=== PATIENT | male | born 1990 | race Caucasian/White ===

== ENCOUNTER 2023-12-22 11:03 | Day surgery (SDC) | payer MEDICARE, MEDICAID, SELFPAY ==
[2023-12-22] VITALS (10 sets, daily range): BP systolic 133–157; BP diastolic 8–116; PULSE 90–97; RESP 16–28; TEMP 98.4; O2SAT 90–96
[~2023-12-22] VITALS: Ht 167.6 cm; Wt 117.3 kg
[~2023-12-22 11:03] MED LIST: NO HOME MEDS; cefazolin 2gm/D5W 100mL 100 ML IV ONE
[2023-12-22] MEDS: famotidine 20mg tablet PO ONE (11:27)
[2023-12-22] MEDS: ringers solution, lacted 1,000 ML IV SCH ×2 (11:28→15:04)
[2023-12-22 11:45] LABS: BASOPHILS # (AUTO) 0.1 X10'3 (0-0.2); BASOPHILS % (AUTO) 0.6 % (0-1); EOSINOPHILS # (AUTO) 0.1 X10'3 (0-0.9); EOSINOPHILS % (AUTO) 0.9 % (0-6); HEMATOCRIT 43.7 % (42.0-52.0); HEMOGLOBIN 14.5 g/dl (14.0-17.9); LYMPHOCYTES # (AUTO) 3.4 X10'3 (1.1-4.8); LYMPHOCYTES % (AUTO) 29.6 % (21-51); MEAN CORPUSCULAR HEMOGLOBIN 28.3 PG (27.0-31.0); MEAN CORPUSCULAR HGB CONC 33.1 g/dL (33.0-36.5); MEAN CORPUSCULAR VOLUME 85.4 FL (78-98); MEAN PLATELET VOLUME 9.5 FL (7.4-10.4); MONOCYTES # (AUTO) 0.7 X10'3 (0-0.9); MONOCYTES % (AUTO) 6.2 % (2-12); NEUTROPHILS # (AUTO) 7.1 X10'3 (1.8-7.7); NEUTROPHILS % (AUTO) 62.7 % (42-75); PLATELET COUNT 247 X10'3 (140-440); RED BLOOD COUNT 5.11 X10'6 (4.70-6.10); RED CELL DISTRIBUTION WIDTH 14.1 % (11.5-14.5); WHITE BLOOD COUNT 11.4 X10'3 (4.5-11.0)
[2023-12-22 12:01] LABS: ALANINE AMINOTRANSFERASE 55 U/L (12-78); ALBUMIN 3.7 G/DL (3.4-5.0); ALBUMIN/GLOBULIN RATIO 0.8 (1.1-1.5); ALKALINE PHOSPHATASE 106 IU/L (46-116); ANION GAP 6 (8-16); ASPARTATE AMINO TRANSFERASE 22 U/L (10-37); BILIRUBIN,TOTAL 0.5 MG/DL (0.1-1.0); BLOOD UREA NITROGEN 9 MG/DL (7-18); BUN/CREATININE RATIO 13.2 (10.0-20.0); CALCIUM 8.9 MG/DL (8.5-10.1); CHLORIDE 105 MMOL/L (99-107); CREATININE 0.68 MG/DL (0.60-1.10); GLUCOSE 98 MG/DL (70-104); POTASSIUM 4.4 MMOL/L (3.5-5.1); SODIUM 140 MMOL/L (135-145); TOTAL CARBON DIOXIDE 28.7 MMOL/L (24-32); TOTAL PROTEIN 8.2 G/DL (6.4-8.2); eCRCL 141 ML/MIN; eGFR > 90 ML/MIN
[2023-12-22] MEDS ORDERED: BUPIVAcaine/PF 2.5mg/ml (0.25%) 10ml vial ONE (12:45)
[2023-12-22] MEDS ORDERED: LIDOcaine 1% (10mg/ml)w/preservative inj. 20ml MDV ONE (12:45)
[2023-12-22] MEDS ORDERED: fentaNYL/PF 50MCG/1 ML 2ML syringe ONE ×2 (12:59)
[2023-12-22] MEDS ORDERED: ondansetron/PF 4mg/2ml inj ONE (13:00)
[2023-12-22] MEDS ORDERED: LIDOcaine 2% (20mg/ml) 5ml vial ONE (13:00)
[2023-12-22] MEDS ORDERED: rocuronium 10mg/ml inj IV ONE (13:00)
[2023-12-22] MEDS ORDERED: dexamethasone sod phosphate 4mg/ml inj. ONE (13:00)
[2023-12-22] MEDS ORDERED: midazolam 1 mg/ML 2ml injection ONE (13:00)
[2023-12-22] MEDS ORDERED: propofol inj 20 ML IV ONE (13:00)
[2023-12-22] MEDS ORDERED: sevoflurane 250ml liquid IH ONE (13:06)
[2023-12-22] MEDS ORDERED: hydrALAZINE 20mg/ml inj. IV PRN (13:10)
[2023-12-22] MEDS ORDERED: morphine 2 MG/ML inj. syringe IV PRN (13:10)
[2023-12-22] MEDS ORDERED: morphine 4 MG/ML inj SYRINge IV PRN (13:10)
[2023-12-22] MEDS ORDERED: fentaNYL/PF 50MCG/1 ML 2ML syringe IV PRN ×2 (13:10)
[2023-12-22] MEDS ORDERED: ondansetron/PF 4mg/2ml inj IV PRN (13:10)
[2023-12-22] MEDS ORDERED: labetalol 20mg/4ml (5mg/ml) syringe IV PRN (13:10)
[2023-12-22] MEDS ORDERED: sugammadex 200mg/2ml injection IV ONE (13:24)
[2023-12-22] MEDS ORDERED: acetaminophen 1,000mg/100ml IV 100 ML IV ONE (13:24)
[2023-12-22] MEDS ORDERED: labetalol 20mg/4ml (5mg/ml) syringe IV ONE ×2 (13:31)
[2023-12-22] MEDS ORDERED: BUPIVAcaine 2.5mg/ml inj 50ml vial (contains preservative) ONE (13:38)
[2023-12-22] MEDS ORDERED: BUPIVACAINE liposomal/PF 13.3 MG/ML vial IM ONE (13:38)
[2023-12-22] MEDS: LIDOcaine 1% 30ml preserv. free vial IJ ONE (13:50)
[2023-12-22] MEDS: oxyCODONE/APAP 5-325mg tablet PO PRN (15:10)
== END 2023-12-22 16:06 | disposition home or self-care (01) ==
LOC: PRE-OP 11:03
PROVIDERS: ATTEND Surgery
DX: L03.316 Cellulitis of umbilicus (principal); E66.01 Morbid (severe) obesity due to excess calories; G47.33 Obstructive sleep apnea (adult) (pediatric); I20.9 Angina pectoris, unspecified; Z98.890 Other specified postprocedural states; Z68.41 Body mass index [BMI] 40.0-44.9, adult; Z88.5 Allergy status to narcotic agent; Z88.8 Allergy status to other drugs, medicaments and biological substances; Z80.0 Family history of malignant neoplasm of digestive organs
CPT/HCPCS: 36415; 49329; 64488; 80053; 82948; 85025; C1781; C9290; J0131; J0665; J0690; J1100; J2250; J2405; J2704; J3010; J3490; J7030; J7120; Z7506; Z7508; Z7512; A4215; A4615; A4618; S0020